=== PATIENT | female | born 1940 | race Caucasian/White ===

== ENCOUNTER → 2016-10-20 | Outpatient (CLI) | payer OTHER, BC | LOC: BRMIMAGING 12:42 | DX: Z12.31 Encounter for screening mammogram for malignant neoplasm of breast (principal); Z13.820 Encounter for screening for osteoporosis; R92.0 Mammographic microcalcification found on diagnostic imaging of breast; Z78.0 Asymptomatic menopausal state | CPT/HCPCS: G0202 ==

== ENCOUNTER → 2016-11-04 | Outpatient (CLI) | payer OTHER, BC | LOC: BRMIMAGING 09:19 | PROVIDERS: ATTEND Family Medicine | DX: R92.8 Other abnormal and inconclusive findings on diagnostic imaging of breast (principal) | CPT/HCPCS: G0204; G0206 ==

== ENCOUNTER → 2017-05-16 | Outpatient (CLI) | payer OTHER, BC | LOC: BRMIMAGING 10:00 | DX: R92.0 Mammographic microcalcification found on diagnostic imaging of breast (principal) ==